=== PATIENT | male | born 1940 | race Two or more races ===

== ENCOUNTER 2017-03-20 22:22 | Inpatient (IN) | payer OTHER, MEDICARE ==
[~2017-03-20] VITALS: Ht 172.7 cm; Wt 63.5 kg
[2017-03-20] MEDS ORDERED: IV NS 0.9% 500 ML BAG IV ONE (23:00)
[2017-03-20 23:20] LABS: BASOPHILS % (AUTO) 0.1 % (0.0-2.0); HEMATOCRIT 47 % (39-51); HEMOGLOBIN 15.7 g/dL (13.5-17.5); LYMPHOCYTES # (AUTO) 0.5 /CMM (0.8-4.8); LYMPHOCYTES % (AUTO) 2.5 % (20.0-44.0); MEAN CORPUSCULAR HEMOGLOBIN 32 PG (26.0-33.0); MEAN CORPUSCULAR HGB CONC 33 g/dl (31.0-36.0); MEAN CORPUSCULAR VOLUME 95 fL (80-96); MONOCYTES # (AUTO) 1.3 /CMM (0.1-1.30); NEUTROPHILS # (AUTO) 17.5 /CMM (1.8-8.9); NEUTROPHILS % (AUTO) 90.4 % (43.0-81.0); PLATELET COUNT (AUTO) 189 /CMM (150-450); RDW COEFFICIENT OF VARIATION 13.5 (11.5-15.0); RED BLOOD CELL COUNT(AUTO) 4.96 MIL/uL (4.5-6.0); WHITE BLOOD COUNT (AUTO) 19.4 K/uL (4.3-11.0)
[2017-03-20] MEDS ORDERED: IV NS 0.9% 1,000 ML BAG IV ONE (23:30)
[2017-03-20 23:32] LABS: INR 0.97 (0.87-1.13)
[2017-03-20 23:36] LABS: TROPONIN I 0.355 ng/mL (0.00-0.056)
[2017-03-20 23:37] LABS: ALANINE AMINOTRANSFERASE 144 U/L (12-78); ALBUMIN 4.3 g/dL (3.4-5.0); ALKALINE PHOSPHATASE 87 U/L (46-116); ASPARTATE AMINOTRANSFERASE 365 U/L (15-37); BILIRUBIN,DIRECT 0.2 mg/dL (0.0-0.2); BILIRUBIN,TOTAL 2.6 mg/dL (0.2-1.0); CALCIUM, SERUM 9.1 mg/dL (8.5-10.1); CHLORIDE 110 mmol/L (98-107); CREATININE 3.1 mg/dL (0.6-1.3); GLUCOSE 84 mg/dL (74-106); SALICYLATE 1.9 mg/dL (2.8-20.0); SODIUM SERUM 150 mmol/L (136-145); TOTAL PROTEIN, SERUM 7.8 g/dL (6.4-8.2); UREA NITROGEN, BLOOD 75 mg/dL (7-18)
[2017-03-20 23:38] LABS: ALCOHOL, BLOOD < 3 mg/dL (0-0)
[2017-03-20 23:40] LABS: BAND % (MANUAL) 4 % (0.0-5.0); CARBON DIOXIDE 6 mmol/L (21-32); LYMPHOCYTES % (MANUAL) 4 % (16-48); MONOCYTES % (MANUAL) 8 % (0-11.0); NEUTROPHILS % (MANUAL) 84 (42-76); POTASSIUM 6.7 mmol/L (3.5-5.1)
[2017-03-20] MEDS ORDERED: CALCIUM CHLORIDE 1,000 MG/10 ML DISP.SYRIN ONE (23:51)
[2017-03-20] MEDS ORDERED: SODIUM BICARBONATE SYR 50 MEQ/50 ML DISP.SYRIN ONE (23:51)
[2017-03-20] MEDS ORDERED: SODIUM POLYSTYRENE SULFONATE 15 G/60 ML BOTTLE ONE (23:51)
[2017-03-21] VITALS (36 sets, daily range): BP systolic 103–156; BP diastolic 45–122
[2017-03-21] MEDS ORDERED: ALBUTEROL FS 2.5 MG/3 ML VIAL.NEB NEB ONE
[2017-03-21] MEDS ORDERED: SODIUM POLYSTYRENE SULFONATE 15 G/60 ML BOTTLE PO ONE
[2017-03-21] MEDS ORDERED: CALCIUM CHLORIDE 1,000 MG/10 ML DISP.SYRIN IV ONE
[2017-03-21] MEDS ORDERED: SODIUM BICARBONATE SYR 50 MEQ/50 ML DISP.SYRIN IV ONE
[2017-03-21] MEDS ORDERED: DEXTROSE 50%-WATER 50 ML DISP.SYRIN IVP ONE
[2017-03-21] MEDS ORDERED: DEXTROSE 50%-WATER 50 ML DISP.SYRIN ONE (00:07)
[2017-03-21] MEDS ORDERED: ALBUTEROL FS 2.5 MG/3 ML VIAL.NEB ONE (00:12)
[2017-03-21 00:45] LABS: ABG BASE EXCESS -19.8 mmol/L; ABG OXYGEN SATURATION 80.8 % (92.0-98.5); ABG PO2 55.2 mmHg (75.0-100.0); AaDO2 143.7 mmHg; COHb 0.4 % (0.5-1.5); MetHb 0.6 % (0.0-1.5); SITE, ABG Left Radial
[2017-03-21 01:02] LABS: CREATINE KINASE, TOTAL 14651 U/L (39-308)
[2017-03-21 01:10] LABS: CREATINE KINASE MB 214.9 ng/mL (0-3.6)
[2017-03-21] MEDS ORDERED: ENOXAPARIN SODIUM 40 MG/0.4 ML DISP.SYRIN SQ SCH (02:00)
[2017-03-21] MEDS ORDERED: Z GUARD REMEDY 2 OZ OINT TP PRN (02:00)
[2017-03-21] MEDS ORDERED: VANCOMYCIN 1 GM in IV D5W 250 ML IV ONE (02:00)
[2017-03-21] MEDS ORDERED: ACETAMINOPHEN 325 MG TABLET PO PRN (02:00)
[2017-03-21] MEDS ORDERED: MORPHINE SULFATE INJ 2 MG/ML DISP.SYRIN IV PRN (02:00)
[2017-03-21] MEDS ORDERED: ONDANSETRON HCL/PF 4 MG/2 ML VIAL IVP PRN (02:00)
[2017-03-21] MEDS ORDERED: ENOXAPARIN SODIUM 40 MG/0.4 ML DISP.SYRIN SQ ONE (02:09)
[2017-03-21] MEDS ORDERED: VANCOMYCIN 1 GM VIAL ONE (02:09)
[2017-03-21] MEDS: IV NS 0.9% 1,000 ML BAG IV SCH ×3 (02:18→05:11)
[2017-03-21 02:30] LABS: BASOPHILS # (AUTO) 0.1 /CMM (0.0-0.2); BASOPHILS % (AUTO) 0.8 % (0.0-2.0); HEMATOCRIT 41 % (39-51); HEMOGLOBIN 14.1 g/dL (13.5-17.5); LYMPHOCYTES # (AUTO) 0.6 /CMM (0.8-4.8); MEAN CORPUSCULAR HEMOGLOBIN 32 PG (26.0-33.0); MEAN CORPUSCULAR HGB CONC 34 g/dl (31.0-36.0); MEAN CORPUSCULAR VOLUME 94 fL (80-96); MONOCYTES # (AUTO) 0.6 /CMM (0.1-1.30); MONOCYTES % (AUTO) 4.4 % (2.0-12.0); NEUTROPHILS # (AUTO) 13.1 /CMM (1.8-8.9); NEUTROPHILS % (AUTO) 90.8 % (43.0-81.0); PLATELET COUNT (AUTO) 163 /CMM (150-450); RDW COEFFICIENT OF VARIATION 13.6 (11.5-15.0); RED BLOOD CELL COUNT(AUTO) 4.43 MIL/uL (4.5-6.0); WHITE BLOOD COUNT (AUTO) 14.4 K/uL (4.3-11.0)
[2017-03-21] MEDS ORDERED: INSULIN REGULAR, HUMAN 100 UNIT in IV NS 0.9% 99 ML IV PRN ×2 (02:30)
[2017-03-21] MEDS ORDERED: Sodium Chloride 154 MEQ in IV 10% DEXTROSE 1,000 ML IV PRN (02:30)
[2017-03-21] MEDS ORDERED: INSULIN REGULAR, HUMAN 100 UNIT/ML 3 ML VIAL ONE (02:36)
[2017-03-21 02:47] LABS: ALBUMIN 3.7 g/dL (3.4-5.0); BILIRUBIN,TOTAL 2.4 mg/dL (0.2-1.0); CALCIUM, SERUM 9.2 mg/dL (8.5-10.1); CREATININE 2.9 mg/dL (0.6-1.3); MAGNESIUM 3.2 mg/dL (1.8-2.4); PHOSPHORUS 5.3 mg/dL (2.5-4.9); TOTAL PROTEIN, SERUM 6.5 g/dL (6.4-8.2)
[2017-03-21 02:52] LABS: TROPONIN I 0.373 ng/mL (0.00-0.056)
[2017-03-21 02:55] LABS: THYROID STIMULATING HORMONE 0.365 uIU/mL (0.358-3.74)
[2017-03-21] MEDS ORDERED: DEXTROSE 10% IN WATER 250 ML BAG IV SCH (03:30)
[2017-03-21] MEDS ORDERED: IV 10% DEXTROSE 1,000 ML IV PRN (03:30)
[2017-03-21] MEDS ORDERED: FOMEPIZOLE 1.5 G in IV D5W 100 ML IV SCH (04:00)
[2017-03-21] MEDS ORDERED: PYRIDOXINE HCL INJ 100 MG/ML VIAL IV ONE (04:00)
[2017-03-21] MEDS ORDERED: FOMEPIZOLE 1.5 G in IV D5W 100 ML IV ONE (04:00)
[2017-03-21] MEDS ORDERED: Thiamine 100 MG in IV D5W 50 ML IV SCH (04:00)
[2017-03-21] MEDS ORDERED: Thiamine 100 MG/ML VIAL ONE (04:38)
[2017-03-21] MEDS: BLOOD SUGAR DIAGNOSTIC 1 EACH STRIP IN SCH ×3 (04:40→06:11)
[2017-03-21 05:28] LABS: CREATINE KINASE, TOTAL 8844 U/L (39-308)
[2017-03-21 05:33] LABS: CALCIUM, SERUM 8.3 mg/dL (8.5-10.1); CREATININE 2.7 mg/dL (0.6-1.3); MAGNESIUM 2.8 mg/dL (1.8-2.4); PHOSPHORUS 3.3 mg/dL (2.5-4.9); POTASSIUM 3.8 mmol/L (3.5-5.1)
[2017-03-21 05:40] LABS: LIPASE 366 U/L (73-393)
[2017-03-21] MEDS ORDERED: PYRIDOXINE HCL INJ 100 MG/ML VIAL ONE (05:41)
[2017-03-21] MEDS ORDERED: PIPERACILLIN /TAZOBACTAM 3.375 G VIAL IV ONE (05:49)
[2017-03-21] MEDS: PIPERACILLIN /TAZOBACTAM 3.375 G in IV D5W 50 ML IV SCH ×3 (05:55→20:12)
[2017-03-21 06:57] LABS: CALCIUM, SERUM 7.8 mg/dL (8.5-10.1); CREATININE 2.4 mg/dL (0.6-1.3); POTASSIUM 3.5 mmol/L (3.5-5.1)
[2017-03-21 07:00] LABS: MAGNESIUM 2.6 mg/dL (1.8-2.4); PHOSPHORUS 2.1 mg/dL (2.5-4.9)
[2017-03-21] MEDS ORDERED: MORPHINE SULFATE INJ 4 MG/ML DISP.SYRIN IV PRN (08:30)
[2017-03-21] MEDS ORDERED: FEE PK DOSING 1 MIN EA MC ONE (08:34)
[2017-03-21] MEDS: ASPIRIN EC 81 MG TABLET.DR PO SCH (09:00)
[2017-03-21] MEDS: IV NS 0.9% 1,000 ML IV PRN (09:38)
[2017-03-21] MEDS ORDERED: POTASSIUM PHOSPHATE MM 7.5 MMOL in IV D5W 100 ML IV SCH (13:00)
[2017-03-21 13:12] LABS: CALCIUM, SERUM 7.9 mg/dL (8.5-10.1); CREATININE 1.8 mg/dL (0.6-1.3); POTASSIUM 3.2 mmol/L (3.5-5.1)
[2017-03-21 13:15] LABS: MAGNESIUM 2.2 mg/dL (1.8-2.4); PHOSPHORUS 2.8 mg/dL (2.5-4.9)
[2017-03-21] MEDS ORDERED: ACETAMINOPHEN 650 MG/SUPP.RECT RC PRN (15:30)
[2017-03-21 16:16] LABS: HEMOGLOBIN 12.9 g/dL (13.5-17.5)
[2017-03-21] MEDS: VANCOMYCIN 0.75 GM in IV D5W 250 ML IV SCH (17:39)
[2017-03-21] MEDS: AZITHROMYCIN 500 MG in IV D5W 250 ML IV SCH (18:45)
[2017-03-21] MEDS: ENOXAPARIN SODIUM 40 MG/0.4 ML DISP.SYRIN SQ SCH (20:14)
[2017-03-22] VITALS (26 sets, daily range): BP systolic 121–164; BP diastolic 54–92
[2017-03-22] MEDS: PIPERACILLIN /TAZOBACTAM 3.375 G in IV D5W 50 ML IV SCH ×2 (00:16→06:34)
[2017-03-22 05:54] LABS: BASOPHILS % (AUTO) 0.1 % (0.0-2.0); HEMATOCRIT 37 % (39-51); HEMOGLOBIN 12.9 g/dL (13.5-17.5); LYMPHOCYTES # (AUTO) 0.4 /CMM (0.8-4.8); LYMPHOCYTES % (AUTO) 5.2 % (20.0-44.0); MEAN CORPUSCULAR HEMOGLOBIN 33 PG (26.0-33.0); MEAN CORPUSCULAR HGB CONC 35 g/dl (31.0-36.0); MEAN CORPUSCULAR VOLUME 94 fL (80-96); MONOCYTES # (AUTO) 0.4 /CMM (0.1-1.30); MONOCYTES % (AUTO) 5.1 % (2.0-12.0); NEUTROPHILS # (AUTO) 6.9 /CMM (1.8-8.9); NEUTROPHILS % (AUTO) 89.6 % (43.0-81.0); PLATELET COUNT (AUTO) 102 /CMM (150-450); RDW COEFFICIENT OF VARIATION 13.4 (11.5-15.0); RED BLOOD CELL COUNT(AUTO) 3.98 MIL/uL (4.5-6.0); WHITE BLOOD COUNT (AUTO) 7.7 K/uL (4.3-11.0)
[2017-03-22 06:03] LABS: ALANINE AMINOTRANSFERASE 85 U/L (12-78); ALBUMIN 2.6 g/dL (3.4-5.0); ALKALINE PHOSPHATASE 58 U/L (46-116); ASPARTATE AMINOTRANSFERASE 125 U/L (15-37); BILIRUBIN,TOTAL 2.2 mg/dL (0.2-1.0); CALCIUM, SERUM 7.8 mg/dL (8.5-10.1); CARBON DIOXIDE 27 mmol/L (21-32); CHLORIDE 112 mmol/L (98-107); CREATININE 1.6 mg/dL (0.6-1.3); GLUCOSE 121 mg/dL (74-106); MAGNESIUM 2.3 mg/dL (1.8-2.4); PHOSPHORUS 2.5 mg/dL (2.5-4.9); SODIUM SERUM 150 mmol/L (136-145); TOTAL PROTEIN, SERUM 5.4 g/dL (6.4-8.2); UREA NITROGEN, BLOOD 30 mg/dL (7-18)
[2017-03-22 06:15] LABS: POTASSIUM 2.4 mmol/L (3.5-5.1)
[2017-03-22] MEDS: IV NS 0.9% 1,000 ML IV PRN (06:34)
[2017-03-22] MEDS: ASPIRIN EC 81 MG TABLET.DR PO SCH (08:40)
[2017-03-22] MEDS: Thiamine 100 MG in IV D5W 50 ML IV SCH (08:49)
[2017-03-22 08:53] LABS: ABG BASE EXCESS 0.9 mmol/L; ABG OXYGEN SATURATION 96.5 % (92.0-98.5); ABG PH 7.476 (7.350-7.450); ABG PO2 97.9 mmHg (75.0-100.0); AaDO2 62.8 mmHg; COHb 0.3 % (0.5-1.5); MetHb 1.1 % (0.0-1.5); O2Hb 95.1 % (94.0-97.0); SITE, ABG Left Radial; VENT MODE, BG 2L NC
[2017-03-22] MEDS: POTASSIUM CL. PREMIX PERIPHER. 50 ML IV SCH ×4 (10:19→13:50)
[2017-03-22] MEDS: VANCOMYCIN 0.75 GM in IV D5W 250 ML IV SCH (11:31)
[2017-03-22] MEDS: ZOSYN IVPB 2.25 G in IV D5W 50ml IV SCH ×3 (12:46→23:35)
[2017-03-22] MEDS: IV 1/2NS 1000 ML 1,000 ML IV PRN (14:28)
[2017-03-22] MEDS: AZITHROMYCIN 500 MG in IV D5W 250 ML IV SCH (16:39)
[2017-03-22] MEDS ORDERED: CALC-246 PO (17:27)
[2017-03-22] MEDS ORDERED: CHOL100044 PO (17:27)
[2017-03-22] MEDS ORDERED: METO25TA6 PO (17:27)
[2017-03-22] MEDS ORDERED: ASPI-1169 PO (17:27)
[2017-03-22] MEDS ORDERED: OMEG1CAP PO (17:27)
[2017-03-22] MEDS ORDERED: ATOR40TA PO (17:27)
[2017-03-22] MEDS ORDERED: DONE10TA44 PO (17:27)
[2017-03-22] MEDS ORDERED: MIRT15TA7 PO (17:27)
[2017-03-22] MEDS: ENOXAPARIN SODIUM 40 MG/0.4 ML DISP.SYRIN SQ SCH (23:41)
[2017-03-23] VITALS (24 sets, daily range): BP systolic 112–164; BP diastolic 62–92
[2017-03-23 04:59] LABS: BASOPHILS % (AUTO) 0.1 % (0.0-2.0); EOSINOPHILS % (AUTO) 0.1 % (0.0-6.0); HEMATOCRIT 37 % (39-51); HEMOGLOBIN 12.9 g/dL (13.5-17.5); LYMPHOCYTES # (AUTO) 0.6 /CMM (0.8-4.8); LYMPHOCYTES % (AUTO) 8.4 % (20.0-44.0); MEAN CORPUSCULAR HEMOGLOBIN 32 PG (26.0-33.0); MEAN CORPUSCULAR HGB CONC 35 g/dl (31.0-36.0); MEAN CORPUSCULAR VOLUME 93 fL (80-96); MONOCYTES # (AUTO) 0.4 /CMM (0.1-1.30); NEUTROPHILS % (AUTO) 86.4 % (43.0-81.0); PLATELET COUNT (AUTO) 85 /CMM (150-450); RDW COEFFICIENT OF VARIATION 13.6 (11.5-15.0); RED BLOOD CELL COUNT(AUTO) 4.01 MIL/uL (4.5-6.0)
[2017-03-23 05:16] LABS: CALCIUM, SERUM 7.6 mg/dL (8.5-10.1); CARBON DIOXIDE 33 mmol/L (21-32); CHLORIDE 111 mmol/L (98-107); CREATININE 1.1 mg/dL (0.6-1.3); GLUCOSE 115 mg/dL (74-106); MAGNESIUM 2.2 mg/dL (1.8-2.4); PHOSPHORUS 1.8 mg/dL (2.5-4.9); SODIUM SERUM 149 mmol/L (136-145); UREA NITROGEN, BLOOD 22 mg/dL (7-18)
[2017-03-23] MEDS: ZOSYN IVPB 2.25 G in IV D5W 50ml IV SCH ×3 (05:21→17:32)
[2017-03-23] MEDS: IV 1/2NS 1000 ML 1,000 ML IV PRN (05:21)
[2017-03-23 05:44] LABS: POTASSIUM 2.6 mmol/L (3.5-5.1)
[2017-03-23 05:56] LABS: BAND % (MANUAL) 4 % (0.0-5.0); LYMPHOCYTES % (MANUAL) 12 % (16-48); MONOCYTES % (MANUAL) 6 % (0-11.0); NEUTROPHILS % (MANUAL) 78 (42-76)
[2017-03-23] MEDS: VANCOMYCIN 0.75 GM in IV D5W 250 ML IV SCH ×2 (05:59→23:17)
[2017-03-23] MEDS: POTASSIUM CL. PREMIX PERIPHER. 50 ML IV SCH ×6 (07:35→12:53)
[2017-03-23] MEDS: Thiamine 100 MG in IV D5W 50 ML IV SCH (08:34)
[2017-03-23] MEDS: ASPIRIN EC 81 MG TABLET.DR PO SCH (08:34)
[2017-03-23] MEDS: METOPROLOL TARTRATE 25 MG TABLET PO SCH ×2 (10:00→20:54)
[2017-03-23] MEDS ORDERED: POTASSIUM CHLORIDE 20 MEQ POWDER PACKET PO ONE ×2 (10:30→11:30)
[2017-03-23] MEDS ORDERED: POTASSIUM PHOSPHATE MM 7.5 MMOL in IV D5W 100 ML IV SCH (11:00)
[2017-03-23] MEDS ORDERED: NEUTRA PHOS 1 POWD.PACKET NG ONE (16:30)
[2017-03-23] MEDS: AZITHROMYCIN 500 MG in IV D5W 250 ML IV SCH (16:35)
[2017-03-24] VITALS (19 sets, daily range): BP systolic 111–155; BP diastolic 53–81
[2017-03-24] MEDS: ZOSYN IVPB 2.25 G in IV D5W 50ml IV SCH ×3 (00:50→13:06)
[2017-03-24] MEDS: IV 1/2NS 1000 ML 1,000 ML IV PRN (04:48)
[2017-03-24 05:46] LABS: CALCIUM, SERUM 7.5 mg/dL (8.5-10.1); CARBON DIOXIDE 37 mmol/L (21-32); CHLORIDE 108 mmol/L (98-107); CREATININE 0.9 mg/dL (0.6-1.3); GLUCOSE 100 mg/dL (74-106); PHOSPHORUS 1.8 mg/dL (2.5-4.9); SODIUM SERUM 144 mmol/L (136-145); UREA NITROGEN, BLOOD 13 mg/dL (7-18)
[2017-03-24 05:53] LABS: POTASSIUM 2.8 mmol/L (3.5-5.1)
[2017-03-24] MEDS ORDERED: POTASSIUM CHLORIDE 10 MEQ/50 ML PREMIXED IVPB FOR PERIPHERAL LINE IV ONE (07:00)
[2017-03-24 07:40] LABS: BASOPHILS % (AUTO) 0.2 % (0.0-2.0); EOSINOPHILS % (AUTO) 0.3 % (0.0-6.0); HEMATOCRIT 37 % (39-51); HEMOGLOBIN 12.4 g/dL (13.5-17.5); LYMPHOCYTES # (AUTO) 0.6 /CMM (0.8-4.8); LYMPHOCYTES % (AUTO) 9.4 % (20.0-44.0); MEAN CORPUSCULAR HEMOGLOBIN 32 PG (26.0-33.0); MEAN CORPUSCULAR HGB CONC 34 g/dl (31.0-36.0); MEAN CORPUSCULAR VOLUME 94 fL (80-96); MONOCYTES # (AUTO) 0.4 /CMM (0.1-1.30); MONOCYTES % (AUTO) 6.2 % (2.0-12.0); NEUTROPHILS # (AUTO) 5.6 /CMM (1.8-8.9); NEUTROPHILS % (AUTO) 83.9 % (43.0-81.0); PLATELET COUNT (AUTO) 92 /CMM (150-450); RDW COEFFICIENT OF VARIATION 13.9 (11.5-15.0); RED BLOOD CELL COUNT(AUTO) 3.92 MIL/uL (4.5-6.0); WHITE BLOOD COUNT (AUTO) 6.7 K/uL (4.3-11.0)
[2017-03-24] MEDS: POTASSIUM CL. PREMIX PERIPHER. 50 ML IV SCH ×6 (07:59→13:14)
[2017-03-24] MEDS: Thiamine 100 MG in IV D5W 50 ML IV SCH (08:38)
[2017-03-24] MEDS: METOPROLOL TARTRATE 25 MG TABLET PO SCH (09:00)
[2017-03-24] MEDS: VANCOMYCIN 0.75 GM in IV D5W 250 ML IV SCH ×2 (09:36→17:22)
[2017-03-24 10:55] LABS: BAND % (MANUAL) 7 % (0.0-5.0); EOSINOPHILS % (MANUAL) 1 % (0-4); MONOCYTES % (MANUAL) 9 % (0-11.0); NEUTROPHILS % (MANUAL) 83 (42-76)
[2017-03-24] MEDS ORDERED: K PHOS NEUTRAL 250 MG TABLET PO ONE (11:30)
[2017-03-24 16:01] LABS: CALCIUM, SERUM 7.9 mg/dL (8.5-10.1); CARBON DIOXIDE 32 mmol/L (21-32); CHLORIDE 107 mmol/L (98-107); GLUCOSE 109 mg/dL (74-106); POTASSIUM 3.5 mmol/L (3.5-5.1); SODIUM SERUM 143 mmol/L (136-145); UREA NITROGEN, BLOOD 16 mg/dL (7-18)
[2017-03-24] MEDS: AZITHROMYCIN 500 MG in IV D5W 250 ML IV SCH (17:23)
== END 2017-03-24 18:12 | disposition short-term general hospital (02) | DRG 917 ==
LOC: ER 22:24 → ICU 03-21 00:51 → EDBD 03-21 00:51 → ICU 03-21 01:23
PROVIDERS: ADMIT Nurse Practitioner Acute Care; ATTEND Nurse Practitioner Acute Care
PROC: 0JHL3XZ Insertion of Tunneled Vascular Access Device into Right Upper Leg Subcutaneous Tissue and Fascia, Percutaneous Approach (ICD-10-PCS; principal; 2017-03-21)
PROC: 06HM33Z Insertion of Infusion Device into Right Femoral Vein, Percutaneous Approach (ICD-10-PCS; principal; 2017-03-21)
PROC: B54BZZA Ultrasonography of Right Lower Extremity Veins, Guidance (ICD-10-PCS; principal; 2017-03-21)
PROC: 5A1D70Z Performance of Urinary Filtration, Intermittent, Less than 6 Hours Per Day (ICD-10-PCS; principal; 2017-03-21)
DX: T52.8X1A Toxic effect of other organic solvents, accidental (unintentional), initial encounter (principal); A41.9 Sepsis, unspecified organism; I21.A1 Myocardial infarction type 2; J69.0 Pneumonitis due to inhalation of food and vomit; E11.10 Type 2 diabetes mellitus with ketoacidosis without coma; G93.41 Metabolic encephalopathy; N17.9 Acute kidney failure, unspecified; K85.90 Acute pancreatitis without necrosis or infection, unspecified; E87.0 Hyperosmolality and hypernatremia; M62.82 Rhabdomyolysis; E87.2 Acidosis; E87.5 Hyperkalemia; T68.XXXA Hypothermia, initial encounter; K80.20 Calculus of gallbladder without cholecystitis without obstruction; E80.6 Other disorders of bilirubin metabolism; K70.10 Alcoholic hepatitis without ascites; K57.90 Diverticulosis of intestine, part unspecified, without perforation or abscess without bleeding; K40.20 Bilateral inguinal hernia, without obstruction or gangrene, not specified as recurrent; E87.6 Hypokalemia; Y92.9 Unspecified place or not applicable; F03.90 Unspecified dementia, unspecified severity, without behavioral disturbance, psychotic disturbance, mood disturbance, and anxiety; Z59.0 Homelessness
CPT/HCPCS: 36415; 36600; 70450-TC; 71045-TC; 72125-TC; 76705-TC; 80048-TC; 80053-TC; 80061-TC; 80076-TC; 80202-TC; 82010-TC; 82550-TC; 82553-TC; 82693; 82803-TC; 82962-TC; 83010; 83605-TC; 83615-TC; 83690-TC; 83735-TC; 83935-TC; 84100-TC; 84132-TC; 84425; 84443-TC; 84484-TC; 85025-TC; 85027-TC; 85730-TC; 87040-TC; 87081-TC; 90935-TC; 92611-TC; 93307-TC; A4606; C1750; C1751; G0480; J0456; J1451; J1650; J1815; J2405; J2543; J3370; J3411; J3415; J3480; J3490; J7030; J7040; J7060; Z7610